=== PATIENT | female | born 1970 | race Caucasian/White ===

== ENCOUNTER 2017-04-29 04:41 | Emergency (ER) | payer MEDICAID, OTHER ==
[~2017-04-29] VITALS: Ht 157.5 cm; Wt 54.4 kg
[~2017-04-29 04:41] MED LIST: IBUP200C5 PO
--- NOTE | 2017-04-29 05:00 | NUR ---
PT BB SELF WITH C/O "HIGH BLOOD PRESSURE & N/V SINCE 2099." PT ALSO STATES SHE HAS A THROBBING HEADACHE AND NECK PAIN THAT RADIATES TO THE BACK OF HER HEAD. PT IS AAOX4. RESP EVEN AND UNLABORED. NO S/S OF ACUTE DISTRESS NOTED. SKIN PINK AND WARM TO TOUCH. PT AMBULATED WITH STEADY GAIT TO ER BED 2. AWAITING MD SHER.
--- NOTE | 2017-04-29 05:04 | NUR ---
BEDSIDE FOR EVAL.
[2017-04-29] MEDS ORDERED: diphenhydrAMINE HCL 50 MG/ML VIAL ONE (05:15)
[2017-04-29] MEDS ORDERED: METOCLOPRAMIDE HCL 10 MG/2 ML VIAL ONE (05:16)
[2017-04-29] MEDS ORDERED: KETOROLAC TROMETHAMINE INJ 30 MG/ML VIAL ONE (05:16)
[2017-04-29] MEDS ORDERED: IV NS 0.9% 1,000 ML BAG IV ONE (05:30)
[2017-04-29] MEDS ORDERED: METOCLOPRAMIDE HCL 10 MG/2 ML VIAL IV ONE (05:30)
[2017-04-29] MEDS ORDERED: KETOROLAC TROMETHAMINE INJ 30 MG/ML VIAL IV ONE (05:30)
[2017-04-29] MEDS ORDERED: diphenhydrAMINE HCL 50 MG/ML VIAL IV ONE (05:30)
[2017-04-29] MEDS ORDERED: LORAZEPAM INJ 2 MG/ML VIAL ONE (05:35)
[2017-04-29] MEDS ORDERED: LORAZEPAM INJ 2 MG/ML VIAL IV ONE (06:00)
--- NOTE | 2017-04-29 06:25 | NUR ---
Patient discharged to home in stable condition. Written and verbal after care instructions and Rx given. Patient verbalizes understanding of instruction.IV removed. Catheter intact and site benign. Pressure and 4x4 applied to site. No bleeding noted. family bedside to take pt home. pt ambulated with steady gait.
[2017-04-29 06:26] VITALS: BP 143/99
== END 2017-04-29 06:27 | disposition home or self-care (01) ==
LOC: ER 04:45
DX: R51 Headache (principal); I10 Essential (primary) hypertension
CPT/HCPCS: 96361; 96374 ×2; 96375; 99284; A4606; J1200; J1885; J2060; J2765; J7030; Z7610